=== PATIENT | male | born 1950 | race Caucasian/White ===

== ENCOUNTER 2016-11-06 10:10 | Emergency (ER) | payer MEDICARE, OTHER ==
[2016-11-06] MEDS ORDERED: Sodium Chloride 0.9% 10 ML Syringe FLUSH PRN (10:12)
--- NOTE | 2016-11-06 10:12 | EDM.PDOC ---
ED HISTORY OF PRESENT ILLNESS - General Chief Complaint: Respiratory Problem Stated Complaint: FROM CLINIC Time Seen by Provider: 11/06/16 10:11 Source of Information: Reports: Patient, Old records, Provider (Ethel LOPES), RN, RN notes reviewed History Limitations: Reports: No limitations - History of Present Illness INITIAL COMMENTS - FREE TEXT/NARRATIVE: Arrives from clinic by wheelchair, sent by Ethel LOPES with report of low oxygen saturation (83% on RA) with onset of cough yesterday. Pt denies fever , chills, chest pain, or edema. Pt reports cough x2 days and mild intermittent nausea. Ethel has consulted with pt's oncologist, and has Dr. Aldana accepted the pt but would like him evaluated and stabilized in the ER prior to transfer. Timing/Duration: Reports: Day(s): (2) Severity: severe Location, General: Reports: chest Quality: Reports: Other (denies pain) Improves with: Reports: None Worsens with: Reports: None Context, General: Reports: Sick contact (granddaughters have had colds). Denies : Activity, Exercise, Lifting, Trauma Associated Symptoms (General): Reports: no other symptoms - Related Data Allergies/ADRs: Allergies Allergy/AdvReac Type Severity Reaction Status Date / Time No Known Allergies Allergy Verified 06/23/15 16:10 Home Meds: Home Meds Glimepiride [Amaryl] 1 mg PO DAILY 07/15/14 [History] Aspirin 81 mg PO DAILY 11/06/16 [History] Escitalopram [Lexapro] 10 mg PO DAILY 11/06/16 [History] Itraconazole [Sporanox] 200 mg PO DAILY 11/06/16 [History] Penicillin V Potassium 500 mg PO DAILY 11/06/16 [History] predniSONE [predniSONE] 20 mg PO DAILY 11/06/16 [History] Past Medical History Other HEENT History: WEARS CORRECTIVE LENSES Cardiovascular History: Reports: High cholesterol Other Respiratory History: WEARS CPAP AT NIGHT Genitourinary History: Reports: Acute renal failure Musculoskeletal History: Reports: Other (see below) Other Musculoskeletal History: COMPRESSION FRACTURE T11-13 Other Neuro History: COMPRESSION FRACTURE T11-13 Endocrine/Metabolic History: Reports: Diabetes, type II Hematologic History: Reports: Other (see below) Other Hematologic History: PROTEINURIA; THROMBOCYTOPENIA Immunologic History: Reports: Other (see below) Other Immunologic History: Last Chemo 06-16-15 Oncologic (Cancer) History: Reports: Non-Hodgkin's Lymphoma - Past Surgical History GI Surgical History: Reports: Appendectomy Male Surgical History: Reports: None Endocrine Surgical History: Reports: None Neurological Surgical History: Reports: None Musculoskeletal Surgical History: Reports: None Oncologic Surgical History: Reports: None Social & Family History - Family History Family Medical History: Noncontributory - Tobacco Use Smoking Status *Q: Never Smoker Second Hand Smoke Exposure: No - Alcohol Use Days Per Week of Alcohol Use: 0 - Recreational Drug Use Recreational Drug Use: No Drug Use in Last 12 Months: Yes Recreational Drug Type: Reports: Marijuana/Hashish Recreational Drug Use Frequency: Monthly - Living Situation & Occupation Living situation: Reports: , with spouse ED ROS GENERAL - Review of Systems Review Of Systems: ROS reveals no pertinent complaints other than HPI. ED EXAM, GENERAL - Physical Exam Exam: See Below Exam Limited By: No limitations General Appearance: alert, WD/WN, no apparent distress Eye Exam: bilateral eye: normal inspection Ears: normal external exam, hearing grossly normal Nose: normal inspection Throat/Mouth: Normal inspection, Normal lips, Normal voice, No airway compromise Head: atraumatic, normocephalic Neck: normal inspection, supple, non-tender, full range of motion. No: lymphadenopathy (L), lymphadenopathy (R) Respiratory/Chest: no respiratory distress, no accessory muscle use, decreased breath sounds, crackles, rales, wheezing Cardiovascular: regular rate, rhythm, no edema GI/Abdominal: normal bowel sounds, soft, non tender, no distention (Male) Exam: Deferred Rectal (Males) Exam: Deferred Back Exam: normal inspection, full range of motion, NT Extremities: normal inspection, normal range of motion, non-tender, normal capillary refill, no pedal edema Neurological: alert, oriented, CN II-XII intact, normal cognition, no motor/ sensory deficits Psychiatric: normal affect, normal mood Skin Exam: Warm, Dry, Intact, Normal color, No rash EKG INTERPRETATION EKG Date: 11/06/16 Time: 11:12 Rhythm: other (SR) Rate (beats/min): 99 [place]: normal P-wave: present QRS: other (RSR' V1) ST-T: other (baseline wander) QT: normal Comparison: NA - no prior EKG Course - Vital Signs Last Recorded V/S: Last Vital Signs Temp 36.1 C 11/06/16 10:30 Pulse 100 11/06/16 10:30 Resp 22 H 11/06/16 10:30 BP 166/92 H 11/06/16 10:30 Pulse Ox 91 L 11/06/16 10:30 - Orders/Labs/Meds Orders: Active Orders 24 hr Category Date Time Status EKG 12 Lead [EKG Documentation Completion] [] STAT Care 11/06/16 10:59 Active Overnight Pulse Oximetry [] Click To Edit Care 11/06/16 10:14 Active Peripheral IV Care [] . DIRECTED Care 11/06/16 10:14 Active RT Aerosol Therapy [RC] ASDIRECTED Care 11/06/16 10:14 Active CULTURE BLOOD [BC] Stat Lab 11/06/16 10:33 Results CULTURE BLOOD [BC] Stat Lab 11/06/16 10:43 Received TROPONIN I [CHEM] Stat Lab 11/06/16 10:59 Ordered UA W/MICROSCOPIC [URIN] Stat Lab 11/06/16 10:12 Uncollected Sodium Chloride 0.9% [Saline Flush] Med 11/06/16 10:12 Active 10 ml FLUSH ASDIRECTED PRN Blood Culture x2 Reflex Set [OM.PC] Stat Oth 11/06/16 10:12 Ordered Peripheral IV Insertion Adult [OM.PC] Stat Oth 11/06/16 10:12 Ordered Pulse Oximetry Continuous Monitoring [OM.PC] Routine Oth 11/06/16 10:12 Ordered RT Supplemental Oxygen Titration [RESPCARE] Stat Ot 11/06/16 10:12 Active Medication Orders Sodium Chloride (Saline Flush) 10 ml FLUSH ASDIRECTED PRN PRN Reason: Keep Vein Open Last Admin: 11/06/16 11:01 Dose: 10 ml Labs: Laboratory Tests 11/06/16 11/06/16 11/06/16 Range/Units 10:43 10:43 10:43 WBC 4.6 L (5.0-10.0) 10^3/uL RBC 3.64 L (4.6-6.2) 10^6/uL Hgb 12.0 L (14.0-18.0) g/dL Hct 33.5 L (40.0-54.0) % MCV 92.0 (80-100) fL MCH 33.0 (27.0-34.0) pg MCHC 35.8 H (33.0-35.0) g/dL Plt Count 15 L* (150-450) 10^3/uL Neut % (Auto) 72.0 (42.2-75.2) % Lymph % (Auto) 18.7 L (20.5-50.1) % [place] % (Auto) 9.1 H (2-8) % Eos % (Auto) 0.2 L (1.0-3.0) % Baso % (Auto) 0.0 (0.0-1.0) % Add Manual Diff Yes Neutrophils % (Manual) 64 % Lymphocytes % (Manual) 23 % Monocytes % (Manual) 13 % PT 11.2 (9.0-12.0) SEC INR 1.1 (0.9-1.2) APTT 31.9 (22.0-34.0) SEC Sodium 134 L (135-145) mmol/L Potassium 4.2 (3.6-5.0) mmol/L Chloride 99 L (101-111) mmol/L Carbon Dioxide 22.0 (21.0-31.0) mmol/L Anion Gap 17.2 BUN 26 H (7-18) mg/dL Creatinine 1.3 (0.6-1.3) mg/dL Est Cr Clr Drug Dosing 56.65 mL/min Estimated GFR (MDRD) 55 BUN/Creatinine Ratio 20.00 Glucose 275 H (74-105) mg/dL Lactic Acid (0.5-2.2) mmol/L Calcium 8.7 (8.4-10.2) mg/dl Total Bilirubin 2.0 H (0.2-1.0) mg/dL AST 16 (10-42) IU/L ALT 34 (10-60) IU/L Alkaline Phosphatase 61 (42-121) IU/L B-Natriuretic Peptide 1060 H (0-100) pg/ml Total Protein 6.1 L (6.7-8.2) g/dl Albumin 3.4 (3.2-5.5) g/dl Globulin 2.7 Albumin/Globulin Ratio 1.26 05/02/17 Range/Units 10:43 WBC (5.0-10.0) 10^3/uL RBC (4.6-6.2) 10^6/uL Hgb (14.0-18.0) g/dL Hct (40.0-54.0) % MCV (80-100) fL MCH (27.0-34.0) pg MCHC (33.0-35.0) g/dL Plt Count (150-450) 10^3/uL Neut % (Auto) (42.2-75.2) % Lymph % (Auto) (20.5-50.1) % [place] % (Auto) (2-8) % Eos % (Auto) (1.0-3.0) % Baso % (Auto) (0.0-1.0) % Add Manual Diff Neutrophils % (Manual) % Lymphocytes % (Manual) % Monocytes % (Manual) % PT (9.0-12.0) SEC INR (0.9-1.2) APTT (22.0-34.0) SEC Sodium (135-145) mmol/L Potassium (3.6-5.0) mmol/L Chloride (101-111) mmol/L Carbon Dioxide (21.0-31.0) mmol/L Anion Gap BUN (7-18) mg/dL Creatinine (0.6-1.3) mg/dL Est Cr Clr Drug Dosing mL/min Estimated GFR (MDRD) BUN/Creatinine Ratio Glucose (74-105) mg/dL Lactic Acid 1.6 (0.5-2.2) mmol/L Calcium (8.4-10.2) mg/dl Total Bilirubin (0.2-1.0) mg/dL AST (10-42) IU/L ALT (10-60) IU/L Alkaline Phosphatase (42-121) IU/L B-Natriuretic Peptide (0-100) pg/ml Total Protein (6.7-8.2) g/dl Albumin (3.2-5.5) g/dl Globulin Albumin/Globulin Ratio Meds: Medications Generic Name Dose Route Start Last Admin Trade Name Freq PRN Reason Stop Dose Admin Sodium Chloride 10 ml 11/06/16 10:12 11/06/16 11:01 Saline Flush FLUSH 10 ml ASDIRECTED PRN Administration Keep Vein Open Discontinued Medications Generic Name Dose Route Start Last Admin Trade Name Freq PRN Reason Stop Dose Admin Albuterol/Ipratropium 3 ml 11/06/16 10:14 11/06/16 10:27 Duoneb 3.0-0.5 Mg/3 Ml NEB 11/06/16 10:15 3 ml ONETIME ONE Administration Furosemide 40 mg 11/06/16 10:24 11/06/16 10:52 Lasix IVPUSH 11/06/16 10:25 40 mg NOW ONE Administration Methylprednisolone Sodium Succinate 125 mg 11/06/16 10:24 11/06/16 10:59 Solu-Medrol IVPUSH 11/06/16 10:25 125 mg ONETIME ONE Administration - Radiology Interpretation Free Text/Narrative:: CXR taken at clinic, not available to view by me: pulm. up. congestion, CHF per verbal report from Ethel LOPES. Departure - Departure Time of Disposition: 11:28 Disposition: DC/Tfer to [facility] 02 Condition: critical Clinical Impression: Acute pulmonary edema, Thrombocytopenia, Non-Hodgkin's lymphoma Acute CHF Qualifiers: Congestive heart failure type: unspecified congestive heart failure type Qualified Code(s): I50.9 - Heart failure, unspecified Forms: ED Department Discharge, Interfacility Transfer EMTALA - My Orders Last 24 Hours: My Active Orders 11/06/16 10:12 UA W/MICROSCOPIC [URIN] Stat Sodium Chloride 0.9% [Saline Flush] 10 ml FLUSH ASDIRECTED PRN Blood Culture x2 Reflex Set [OM.PC] Stat Peripheral IV Insertion Adult [OM.PC] Stat Pulse Oximetry Continuous Monitoring [OM.PC] Routine RT Supplemental Oxygen Titration [RESPCARE] Stat 11/06/16 10:14 Overnight Pulse Oximetry [RC] Click To Edit Peripheral IV Care [RC] . DIRECTED RT Aerosol Therapy [RC] ASDIRECTED 11/06/16 10:33 CULTURE BLOOD [BC] Stat 11/06/16 10:43 CULTURE BLOOD [BC] Stat 11/06/16 10:59 EKG 12 Lead [EKG Documentation Completion] [RC] STAT TROPONIN I [CHEM] Stat - Assessment/Plan Last 24 Hours: My Active Orders 11/06/16 10:12 UA W/MICROSCOPIC [URIN] Stat Sodium Chloride 0.9% [Saline Flush] 10 ml FLUSH ASDIRECTED PRN Blood Culture x2 Reflex Set [OM.PC] Stat Peripheral IV Insertion Adult [OM.PC] Stat Pulse Oximetry Continuous Monitoring [OM.PC] Routine RT Supplemental Oxygen Titration [RESPCARE] Stat 11/06/16 10:14 Overnight Pulse Oximetry [RC] Click To Edit Peripheral IV Care [RC] . DIRECTED RT Aerosol Therapy [RC] ASDIRECTED 11/06/16 10:33 CULTURE BLOOD [BC] Stat 11/06/16 10:43 CULTURE BLOOD [BC] Stat 11/06/16 10:59 EKG 12 Lead [EKG Documentation Completion] [RC] STAT TROPONIN I [CHEM] Stat
[2016-11-06] MEDS ORDERED: Albuterol/Ipratropium 3.0-0.5 MG/3 ML Neb Soln NEB ONE (10:14)
[2016-11-06] MEDS ORDERED: Furosemide 40 MG/4 ML VIAL IVPUSH ONE (10:24)
[2016-11-06] MEDS ORDERED: methylPREDNISolone Sodium Succinate 125 MG/2 ML SDV IVPUSH ONE (10:24)
[2016-11-06 10:32] VITALS: BP 166/92
--- NOTE | 2016-11-07 07:20 | EKG ---
11/06/2016- AMELIA LOPEZ - EKG done on a 66-year-old male, showing sinus rhythm with normal axis, with heart rate of 99 beats per minute. No acute ST wave changes. RSR noted on V1. [facility] /[id number] MTDD
== END 2016-11-06 12:23 ==
LOC: DL.ED 10:10
DX: I21.4 Non-ST elevation (NSTEMI) myocardial infarction (principal); I50.9 Heart failure, unspecified; J81.0 Acute pulmonary edema; D69.6 Thrombocytopenia, unspecified; C85.90 Non-Hodgkin lymphoma, unspecified, unspecified site; E78.00 Pure hypercholesterolemia, unspecified; E11.9 Type 2 diabetes mellitus without complications; Z90.49 Acquired absence of other specified parts of digestive tract; Z79.82 Long term (current) use of aspirin; Z79.899 Other long term (current) drug therapy
CPT/HCPCS: 36415; 80053; 81001; 83605; 83880; 84484; 85025; 85610; 85730; 87040; 93005; 93010; 94640; 96374; 96375; 99284; 99285; J1940; J2930; J7050

== ENCOUNTER 2017-01-07 15:10 | Emergency (ER) | payer MEDICARE, OTHER ==
[2017-01-07 15:19] VITALS: BP 108/62
[2017-01-07] MEDS ORDERED: Sodium Chloride 0.9% 10 ML Syringe FLUSH PRN (15:20)
--- NOTE | 2017-01-07 16:04 | CR ---
Clinical history: 66-year-old male left chest pain, cough and fever who is known to have "non-Hodgki n's lymphoma". PA, lateral chest films again demonstrate benign-appearing large granuloma, axillary segment right u pper lobe, unchanged since CT exam 14 March 2016. Chronic pleural-parenchymal scarring left chest . No pneumothorax. 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 Old healed fracture rig ht clavicle. Normal cardiac silhouette without cephalization of vascular flow, new signs of alveolar edema or dep endent pleural effusion. No new lung mass, hilar lymphadenopathy or focal lobar pneumonia. CONCLUSION: No acute new cardiopulmonary abnormality since March 2016 exam.
--- NOTE | 2017-01-09 13:20 | EKG ---
01/07/2017- AMELIA LOPEZ - EKG per my reading shows sinus rhythm at a rate of 88 with inferior Q-waves. [facility] /[id number]
--- NOTE | 2017-01-09 15:38 | EDM.PDOC ---
Scribed by Shannan Hill 01/09/17 1537 for Rony Burrell MD ED HPI GENERAL MEDICAL PROBLEM - General Chief Complaint: Chest Pain Stated Complaint: CHEST PAINS, [id number] Time Seen by Provider: 01/07/17 15:15 Source of Information: Reports: Patient, RN, RN Notes Reviewed History Limitations: Reports: No Limitations - History of Present Illness INITIAL COMMENTS - FREE TEXT/NARRATIVE: Complaining of onset of left lateral chest wall pain yesterday. Denies injury, radiating pain, cough or SOB. Describes the pain as sharp and worse with palpation. Quality: Reports: Ache Severity: Moderate Improves with: Reports: None Worsens with: Reports: None Associated Symptoms: Reports: No Other Symptoms Left Chest Pain Score (Numeric/FACES): 6 - Related Data Allergies Allergy/AdvReac Type Severity Reaction Status Date / Time simvastatin Allergy Hives Verified 01/07/17 15:15 Home Meds: Home Meds Glimepiride [Amaryl] 1 mg PO DAILY 07/15/14 [History] Aspirin 81 mg PO DAILY 11/06/16 [History] Escitalopram [Lexapro] 10 mg PO DAILY 11/06/16 [History] Penicillin V Potassium 500 mg PO BID 11/06/16 [History] Cholecalciferol (Vitamin D3) [Vitamin D] 5,000 unit PO DAILY 01/07/17 [History] Past Medical History HEENT History: Reports: Impaired Vision Other HEENT History: WEARS CORRECTIVE LENSES Cardiovascular History: Reports: High Cholesterol Other Respiratory History: WEARS CPAP AT NIGHT Genitourinary History: Reports: Acute Renal Failure Musculoskeletal History: Reports: Other (See Below) Other Musculoskeletal History: COMPRESSION FRACTURE T11-13 Other Neuro History: COMPRESSION FRACTURE T11-13 Endocrine/Metabolic History: Reports: Diabetes, Type II Hematologic History: Reports: Other (See Below) Other Hematologic History: PROTEINURIA; THROMBOCYTOPENIA Immunologic History: Reports: Other (See Below) Other Immunologic History: Last Chemo 06-16-15 Oncologic (Cancer) History: Reports: Non-Hodgkin's Lymphoma - Past Surgical History GI Surgical History: Reports: Appendectomy Male Surgical History: Reports: None Endocrine Surgical History: Reports: None Neurological Surgical History: Reports: None Musculoskeletal Surgical History: Reports: None Oncologic Surgical History: Reports: None Social & Family History - Family History Family Medical History: Noncontributory - Tobacco Use Smoking Status *Q: Never Smoker Used Tobacco, but Quit: Yes Month Tobacco Last Used: 2009 Second Hand Smoke Exposure: No - Caffeine Use Caffeine Use: Reports: Coffee - Alcohol Use Days Per Week of Alcohol Use: 0 - Recreational Drug Use Recreational Drug Use: No Drug Use in Last 12 Months: Yes Recreational Drug Type: Reports: Marijuana/Hashish Recreational Drug Use Frequency: Monthly - Living Situation & Occupation Living situation: Reports: , with Spouse ED ROS GENERAL - Review of Systems Review Of Systems: ROS reveals no pertinent complaints other than HPI. ED EXAM, GENERAL - Physical Exam Exam: See Below Exam Limited By: No Limitations General Appearance: Obese Eye Exam: Bilateral Eye: Normal Inspection Ears: Normal External Exam, Normal Canal, Hearing Grossly Normal, Normal TMs Nose: Normal Inspection, Normal Mucosa, No Blood Throat/Mouth: Normal Inspection, Normal Lips, Normal Teeth, Normal Gums, Normal Oropharynx, Normal Voice, No Airway Compromise Head: Atraumatic, Normocephalic Neck: Normal Inspection, Supple, Non-Tender, Full Range of Motion Respiratory/Chest: Other (normal except left lateral chest wall tenderness without mass, swelling, erythema, bruising, or richard crepitus. ) Cardiovascular: Normal Peripheral Pulses, Regular Rate, Rhythm, No Edema, No Gallop, No JVD, No Murmur, No Rub GI/Abdominal: Other (obese, otherwise normal. ) Back Exam: Normal Inspection, Full Range of Motion, NT Extremities: Normal Inspection, Normal Range of Motion, Non-Tender, Normal Capillary Refill, No Pedal Edema Neurological: Alert, Oriented, CN II-XII Intact, Normal Cognition, Normal Gait, Normal Reflexes, No Motor/Sensory Deficits Psychiatric: Normal Affect, Normal Mood Skin Exam: Warm, Dry, Intact, Normal Color, No Rash Lymphatic: No Adenopathy EKG INTERPRETATION EKG Date: 01/07/17 Time: 15:28 Rhythm: Other (sinus rhythm) Rate (Beats/Min): 88 [place]: Normal P-Wave: Present QRS: Other (Old inferior Q waves. Abnormal R wave progression easly transition.) ST-T: Normal QT: Normal Comparison: NA - No Prior EKG Course - Vital Signs Last Recorded V/S: Last Vital Signs Temp 37.7 C 01/07/17 15:18 Pulse 99 01/07/17 15:18 Resp 16 01/07/17 15:18 BP 108/62 01/07/17 15:18 Pulse Ox 100 01/07/17 15:18 - Orders/Labs/Meds Labs: Laboratory Tests 01/07/17 01/07/17 01/07/17 Range/Units 15:40 15:40 15:40 WBC 9.1 (5.0-10.0) 10^3/uL RBC 3.04 L (4.6-6.2) 10^6/uL Hgb 10.5 L (14.0-18.0) g/dL Hct 31.5 L (40.0-54.0) % MCV 103.6 H (80-100) fL MCH 34.5 H (27.0-34.0) pg MCHC 33.3 (33.0-35.0) g/dL Plt Count 83 L (150-450) 10^3/uL Neut % (Auto) 57.2 (42.2-75.2) % Lymph % (Auto) 25.7 (20.5-50.1) % [place] % (Auto) 16.4 H (2-8) % Eos % (Auto) 0.3 L (1.0-3.0) % Baso % (Auto) 0.4 (0.0-1.0) % Sodium 137 (135-145) mmol/L Potassium 4.4 (3.6-5.0) mmol/L Chloride 102 (101-111) mmol/L Carbon Dioxide 26.0 (21.0-31.0) mmol/L Anion Gap 13.4 BUN 19 H (7-18) mg/dL Creatinine 1.3 (0.6-1.3) mg/dL Est Cr Clr Drug Dosing 57.57 mL/min Estimated GFR (MDRD) 55 BUN/Creatinine Ratio 14.61 Glucose 155 H (74-105) mg/dL Lactic Acid 2.0 (0.5-2.2) mmol/L Calcium 9.1 (8.4-10.2) mg/dl Total Bilirubin 0.3 (0.2-1.0) mg/dL AST 17 (10-42) IU/L ALT 16 (10-60) IU/L Alkaline Phosphatase 59 (42-121) IU/L Troponin I 0.02 (0.00-0.02) ng/ml B-Natriuretic Peptide 128 H (0-100) pg/ml Total Protein 6.4 L (6.7-8.2) g/dl Albumin 3.6 (3.2-5.5) g/dl Globulin 2.8 Albumin/Globulin Ratio 1.29 Amylase 70 (28-100) U/L Lipase 33 (22-51) U/L Urine Color (YELLOW) Urine Appearance (CLEAR) Urine pH (5.0-9.0) Ur Specific [place] (1.005-1.030) Urine Protein (NEGATIVE) Urine Glucose (UA) (NEGATIVE) Urine Ketones (NEGATIVE) Urine Occult Blood (NEGATIVE) Urine Nitrite (NEGATIVE) Urine Bilirubin (NEGATIVE) Urine Urobilinogen (0.2-1.0) mg/dL Ur Leukocyte Esterase (NEGATIVE) Urine RBC /HPF Urine WBC (0-5/HPF) /HPF Ur Epithelial Cells /HPF Urine Bacteria (0-FEW/HPF) /HPF Urine Mucus /LPF 01/07/17 Range/Units 16:43 WBC (5.0-10.0) 10^3/uL RBC (4.6-6.2) 10^6/uL Hgb (14.0-18.0) g/dL Hct (40.0-54.0) % MCV (80-100) fL MCH (27.0-34.0) pg MCHC (33.0-35.0) g/dL Plt Count (150-450) 10^3/uL Neut % (Auto) (42.2-75.2) % Lymph % (Auto) (20.5-50.1) % [place] % (Auto) (2-8) % Eos % (Auto) (1.0-3.0) % Baso % (Auto) (0.0-1.0) % Sodium (135-145) mmol/L Potassium (3.6-5.0) mmol/L Chloride (101-111) mmol/L Carbon Dioxide (21.0-31.0) mmol/L Anion Gap BUN (7-18) mg/dL Creatinine (0.6-1.3) mg/dL Est Cr Clr Drug Dosing mL/min Estimated GFR (MDRD) BUN/Creatinine Ratio Glucose (74-105) mg/dL Lactic Acid (0.5-2.2) mmol/L Calcium (8.4-10.2) mg/dl Total Bilirubin (0.2-1.0) mg/dL AST (10-42) IU/L ALT (10-60) IU/L Alkaline Phosphatase (42-121) IU/L Troponin I (0.00-0.02) ng/ml B-Natriuretic Peptide (0-100) pg/ml Total Protein (6.7-8.2) g/dl Albumin (3.2-5.5) g/dl Globulin Albumin/Globulin Ratio Amylase (28-100) U/L Lipase (22-51) U/L Urine Color Yellow (YELLOW) Urine Appearance Clear (CLEAR) Urine pH 5.5 (5.0-9.0) Ur Specific [place] 1.020 (1.005-1.030) Urine Protein Negative (NEGATIVE) Urine Glucose (UA) 100 H (NEGATIVE) Urine Ketones Negative (NEGATIVE) Urine Occult Blood Negative (NEGATIVE) Urine Nitrite Negative (NEGATIVE) Urine Bilirubin Negative (NEGATIVE) Urine Urobilinogen 0.2 (0.2-1.0) mg/dL Ur Leukocyte Esterase Negative (NEGATIVE) Urine RBC 0-5 /HPF Urine WBC 0-5 (0-5/HPF) /HPF Ur Epithelial Cells Rare /HPF Urine Bacteria Rare (0-FEW/HPF) /HPF Urine Mucus Few H /LPF Meds: Medications Discontinued Medications Generic Name Dose Route Start Last Admin Trade Name Freq PRN Reason Stop Dose Admin Sodium Chloride 10 ml 01/07/17 15:20 01/07/17 16:14 Saline Flush FLUSH 10 ml ASDIRECTED PRN Administration Keep Vein Open - Radiology Interpretation Free Text/Narrative:: Chest x-ray: Per rad report No acute new cardiopulmonary abnormality since March 2016 exam. Departure - Departure Time of Disposition: 16:47 Disposition: Home, Self-Care 01 Condition: Good Clinical Impression: Pleurisy without effusion, Pleurodynia Instructions: Pleurisy, [id number], Nonspecific Chest Pain Referrals: Ethel Ojeda [Primary Care Provider] - Forms: ED Department Discharge Additional Instructions: Take your home pain medication as prescribed. Take several deep breaths at least once an hour while awake to prevent development of pneumonia. Follow up in clinic in 3 days if not improved.Return to ER at any time. I have read and agree with the documentation that has been completed regarding this visit. By signing this record, I attest that the documentation was completed in my physical presence and is an accurate record of the encounter.
== END 2017-01-07 16:58 | disposition home or self-care (01) ==
LOC: DL.ED 15:10
DX: R09.1 Pleurisy (principal); R07.81 Pleurodynia; H54.7 Unspecified visual loss; E78.00 Pure hypercholesterolemia, unspecified; E11.9 Type 2 diabetes mellitus without complications; Z90.49 Acquired absence of other specified parts of digestive tract; Z79.899 Other long term (current) drug therapy; Z79.82 Long term (current) use of aspirin
CPT/HCPCS: 36415; 71020; 80053; 81001; 82150; 83605; 83690; 83880; 84484; 85025; 87040; 93005; 99285; J7050; 93010

== ENCOUNTER 2017-10-23 07:05 | Day surgery (SDC) | payer MEDICARE, OTHER ==
[2017-10-23] MEDS ORDERED: Dexamethasone 4 MG/ML SDV IV ONE (07:06)
[2017-10-23] MEDS ORDERED: Sodium Chloride 0.9% 10 ML Syringe IV ONE (07:06)
[2017-10-23] MEDS ORDERED: Midazolam 1 MG/ML 2 ML SDV IV ONE (07:06)
[2017-10-23] MEDS ORDERED: Timolol Maleate 0.5% Ophth Soln 5 ML Bottle EYERT ONE (07:30)
[2017-10-23] MEDS ORDERED: Sodium Chloride 0.9% 10 ML Syringe FLUSH PRN (07:30)
[2017-10-23] MEDS ORDERED: Ondansetron 4 MG/2 ML SDV IVPUSH PRN (07:30)
[2017-10-23] MEDS ORDERED: Phenylephrine 10% Ophth Soln 5 ML Bot EYERT PRN (07:30)
[2017-10-23] MEDS ORDERED: Cataract Ophth Solution EYERT ONE (07:30)
[2017-10-23] MEDS ORDERED: Povidone-Iodine 5% Sterile Ophth Soln 30 ML Bottle EYERT ONE ×2 (07:30→08:49)
[2017-10-23] MEDS ORDERED: Moxifloxacin 0.5% Ophth Soln 3 ML Bottle EYERT ONE (07:30)
[2017-10-23] MEDS ORDERED: Phenylephrine 10% Ophth Soln 5 ML Bot EYERT ONE (07:30)
[2017-10-23] MEDS ORDERED: Proparacaine 0.5% Ophth Soln 15 ML Bottle EYERT ONE (07:30)
[2017-10-23] MEDS ORDERED: Acetaminophen 325 MG Tab PO PRN (07:30)
[2017-10-23] MEDS ORDERED: Tetracaine HCl/PF 0.5% 4 ML Bottle EYERT ONE (08:48)
[2017-10-23] MEDS ORDERED: Vancomycin 500 MG SDV EYERT ONE (08:59)
[2017-10-23] MEDS ORDERED: Lidocaine 1% 30 ML SDV INJECT ONE (08:59)
[2017-10-23] MEDS ORDERED: Chondroitin Sulfate/Hyaluronate Sodium Ophth Inj 0.5 ML Syringe IOCULAR ONE (09:00)
[2017-10-23] MEDS ORDERED: Balanced Salt Solution Ophth Irrig 500 ML Bottle IOCULAR ONE (09:00)
[2017-10-23] MEDS ORDERED: Dexamethasone/Neomycin/Polymyxin B Ophth Oint 3.5 GM Tube EYERT ONE (09:10)
[2017-10-23] MEDS ORDERED: Apraclonidine 0.5% Ophth Soln 5 ML Bot EYERT ONE (09:10)
--- NOTE | 2017-10-23 10:02 | OR ---
DATE: PREOPERATIVE DIAGNOSIS: Visually significant mixed cataract, right eye. POSTOPERATIVE DIAGNOSIS: Visually significant mixed cataract, right eye. PROCEDURE: Extracapsular cataract extraction with intraocular lens implant, right eye. ANESTHESIA: Topical/local MAC. COMPLICATIONS: None. INDICATION: Mr. Galeana was seen in the clinic with complaints of blurred vision. Feels like he is looking through dirty glasses. His clinical examination reveals mixed nuclear and cortical cataract. Visual acuity with oncoming light is at the level of 20 unable. I offered Mr. Galaena cataract surgery. I explained the risks including but not limited to infection, retinal detachment, loss of vision, and need for additional surgery amongst others. We discussed implant options. He has requested surgery with a monofocal implant. He voiced an understanding with respect to risks and wished to proceed. OPERATIVE DESCRIPTION: After informed consent was obtained and the risks, benefits, and alternatives were explained, the patient was brought to the operative suite and topical anesthesia was administered. The patient was then prepped and draped in the sterile fashion and attention was placed on the right eye. A sterile lid speculum was placed into the right eye to allow operative exposure. A full-thickness paracentesis was made in the temporal portion of the operative eye. Preservative-free lidocaine 0.1 mL was injected into the anterior chamber followed by viscoelastic. A full-thickness corneal incision was then made into the anterior chamber. A bent needle cystotome was used to create a small amy in the anterior capsule. The capsulorrhexis forceps was then used to create a 360-degree curvilinear capsulorrhexis. The nucleus was then removed using a phacoemulsification handpiece, and the remaining cortical material was then removed with irrigation and aspiration handpiece. Following removal of the cortical material, the capsular bag was then inspected and noted to be free of any holes or tears. Viscoelastic was then injected into the capsular bag, and the intraocular lens was inserted into the capsular bag. The viscoelastic material was then removed from both the anterior and posterior chambers and from behind the IOL. The lens and capsular bag were then reinspected. The IOL was well centered and the capsular bag intact. The wound and paracentesis sites were inspected and hydrated with balanced saline solution. Both were found to be self-sealing. The intraocular pressure was assessed digitally and found to be within normal range. A good red reflex was noted at the completion of the procedure. No complications occurred during the operation. At the completion of the procedure, Maxitrol, Voltaren, and Iopidine drops were placed into the operative eye. A sterile eye shield was placed over the operative eye, and the patient was transported to the postoperative recovery area having tolerated the procedure well. Postoperative instructions were given along with a postoperative appointment. The patient was advised to call with any questions or concerns. [facility] /[id number]
[2017-10-23 10:08] VITALS: BP 143/68
== END 2017-10-23 10:00 | disposition home or self-care (01) ==
LOC: DL.SDS 07:05
PROVIDERS: ATTEND Ophthalmology
DX: H25.811 Combined forms of age-related cataract, right eye (principal); E11.36 Type 2 diabetes mellitus with diabetic cataract; I10 Essential (primary) hypertension; E78.5 Hyperlipidemia, unspecified; G47.33 Obstructive sleep apnea (adult) (pediatric); Z79.52 Long term (current) use of systemic steroids; Z99.89 Dependence on other enabling machines and devices; Z79.899 Other long term (current) drug therapy; Z88.8 Allergy status to other drugs, medicaments and biological substances
CPT/HCPCS: 00142; A9270-GY; C1780; J1100; J2250; J3370; J7050

== ENCOUNTER 2017-10-30 09:49 | Day surgery (SDC) | payer MEDICARE, OTHER ==
[2017-10-30] MEDS ORDERED: Sodium Chloride 0.9% 10 ML Syringe IV ONE (09:50)
[2017-10-30] MEDS ORDERED: Midazolam 1 MG/ML 2 ML SDV IV ONE (09:50)
[2017-10-30] MEDS ORDERED: Dexamethasone 4 MG/ML SDV IV ONE (09:50)
[2017-10-30] MEDS ORDERED: Proparacaine 0.5% Ophth Soln 15 ML Bottle EYELF ONE (10:00)
[2017-10-30] MEDS ORDERED: Sodium Chloride 0.9% 10 ML Syringe FLUSH PRN (10:00)
[2017-10-30] MEDS ORDERED: Povidone-Iodine 5% Sterile Ophth Soln 30 ML Bottle EYELF ONE ×2 (10:00→10:47)
[2017-10-30] MEDS ORDERED: Moxifloxacin 0.5% Ophth Soln 3 ML Bottle EYELF ONE (10:00)
[2017-10-30] MEDS ORDERED: Phenylephrine 10% Ophth Soln 5 ML Bot EYELF PRN (10:00)
[2017-10-30] MEDS ORDERED: Acetaminophen 325 MG Tab PO PRN (10:00)
[2017-10-30] MEDS ORDERED: Phenylephrine 10% Ophth Soln 5 ML Bot EYELF ONE (10:00)
[2017-10-30] MEDS ORDERED: Ondansetron 4 MG/2 ML SDV IVPUSH PRN (10:00)
[2017-10-30] MEDS ORDERED: Timolol Maleate 0.5% Ophth Soln 5 ML Bottle EYELF ONE (10:00)
[2017-10-30] MEDS ORDERED: Cataract Ophth Solution EYELF ONE (10:00)
[2017-10-30] MEDS ORDERED: Tetracaine HCl/PF 0.5% 4 ML Bottle EYELF ONE (10:46)
[2017-10-30] MEDS ORDERED: Lidocaine 1% 30 ML SDV ONE (10:48)
[2017-10-30] MEDS ORDERED: Vancomycin 500 MG SDV EYELF ONE (10:48)
[2017-10-30] MEDS ORDERED: Balanced Salt Solution Ophth Irrig 500 ML Bottle IOCULAR ONE (10:48)
[2017-10-30] MEDS ORDERED: Chondroitin Sulfate/Hyaluronate Sodium Ophth Inj 0.75 ML Syringe EYELF ONE (10:49)
[2017-10-30] MEDS ORDERED: Dexamethasone/Neomycin/Polymyxin B Ophth Oint 3.5 GM Tube EYELF ONE (10:50)
[2017-10-30] MEDS ORDERED: Apraclonidine 0.5% Ophth Soln 5 ML Bot EYELF ONE (10:50)
[2017-10-30 13:40] VITALS: BP 123/62
--- NOTE | 2017-10-30 17:37 | OR ---
DATE: 10/30/2017 PREOPERATIVE DIAGNOSIS: Visually significant mixed cataract, left eye. POSTOPERATIVE DIAGNOSIS: Visually significant mixed cataract, left eye. PROCEDURE: Extracapsular cataract extraction with intraocular lens implant, left eye. ANESTHESIA: Topical/local MAC. COMPLICATIONS: None. INDICATION: Mr. Galeana was seen in the clinic. He is unhappy with his vision. He has difficulty with blurred vision and has difficulty with glare. Clinical examination reveals mixed cataract. I explained options; I offered cataract surgery; and I explained risks including, but not limited to infection, retinal detachment, loss of vision, and need for additional surgery amongst others. We discussed implant options. He has requested a monofocal implant. He understands that he may require glasses for some activities following surgery. He voiced an understanding with respect to risks and wished to proceed. OPERATIVE DESCRIPTION: After informed consent was obtained and the risks, benefits, and alternatives were explained, the patient was brought to the operative suite and topical anesthesia was administered. The patient was then prepped and draped in the sterile fashion, and attention was placed on the left eye. A sterile lid speculum was placed into the left eye to allow operative exposure. A full-thickness paracentesis was made in the temporal portion of the operative eye. Preservative-free lidocaine 0.1 mL was injected into the anterior chamber followed by viscoelastic. A full-thickness corneal incision was then made into the anterior chamber. A bent needle cystotome was used to create a small amy in the anterior capsule. The capsulorrhexis forceps was then used to create a 360-degree curvilinear capsulorrhexis. The nucleus was then removed using a phacoemulsification handpiece, and the remaining cortical material was then removed with irrigation and aspiration handpiece. Following removal of the cortical material, the capsular bag was then inspected and noted to be free of any holes or tears. Viscoelastic was then injected into the capsular bag, and the intraocular lens was inserted into the capsular bag. The viscoelastic material was then removed from both the anterior and posterior chambers and from behind the IOL. The lens and capsular bag were then reinspected. The IOL was well centered and the capsular bag intact. The wound and paracentesis sites were inspected and hydrated with balanced saline solution. Both were found to be self-sealing. The intraocular pressure was assessed digitally and found to be within normal range. A good red reflex was noted at the completion of the procedure. No complications occurred during the operation. At the completion of the procedure, Maxitrol, Voltaren, and Iopidine drops were placed into the operative eye. A sterile eye shield was placed over the operative eye, and the patient was transported to the postoperative recovery area having tolerated the procedure well. Postoperative instructions were given along with a postoperative appointment. The patient was advised to call with any questions or concerns. [facility] /[id number]
== END 2017-10-30 11:50 | disposition home or self-care (01) ==
LOC: DL.SDS 09:49
PROVIDERS: ATTEND Ophthalmology
DX: H25.812 Combined forms of age-related cataract, left eye (principal); E78.5 Hyperlipidemia, unspecified; I10 Essential (primary) hypertension; G47.33 Obstructive sleep apnea (adult) (pediatric); Z99.89 Dependence on other enabling machines and devices; Z79.52 Long term (current) use of systemic steroids; Z79.899 Other long term (current) drug therapy; Z88.8 Allergy status to other drugs, medicaments and biological substances
CPT/HCPCS: 66984; A9270; J3370; J7050; 00142; C1780; J1100; J2250

== ENCOUNTER 2018-11-01 17:51 | Emergency (ER) | payer MEDICARE, OTHER ==
[2018-11-01 18:08] VITALS: BP 98/27
--- NOTE | 2018-11-02 08:31 | EDM.PDOC ---
Scribed by Shannan Hill 11/01/18 [id number] for Gracie Breen NP ED HPI GENERAL MEDICAL PROBLEM - General Chief Complaint: ENT Problem Stated Complaint: HEAR AID TIP STUCK IN EAR Time Seen by Provider: 11/01/18 18:35 Source of Information: Reports: Patient, RN, RN Notes Reviewed History Limitations: Reports: No Limitations - History of Present Illness INITIAL COMMENTS - FREE TEXT/NARRATIVE: Patient presents to ER with complaint of tip of hearing aid in left ear. No other complaints. Onset: Today Duration: Constant Location: Reports: Other (left ear) Quality: Reports: Ache Severity: Mild Improves with: Reports: None Worsens with: Reports: None Associated Symptoms: Reports: No Other Symptoms - Related Data Allergies Allergy/AdvReac Type Severity Reaction Status Date / Time simvastatin Allergy Hives Verified 11/01/18 18:02 Home Meds: Home Meds Glimepiride [Amaryl] 4 mg PO DAILY 07/15/14 [History] Aspirin 81 mg PO BEDTIME 11/06/16 [History] Escitalopram [Lexapro] 10 mg PO DAILY 11/06/16 [History] Penicillin V Potassium 500 mg PO BID 11/06/16 [History] Cholecalciferol (Vitamin D3) [Vitamin D] 5,000 unit PO DAILY 01/07/17 [History] Calc/D3/Mag/Zn/[place]mas/[place] [Calcium 600 MG Plus Vit D] 1 tab PO DAILY [History] Leuprolide Acetate [Lupron Depot] 45 mg SQ [id number] 10/22/17 [History] Vit A/C/E AC/Znox/Cupric Oxide [Eye Vitamin-Minerals Tablet] 1 tab PO DAILY [History] valACYclovir HCl [Valtrex] 500 mg PO DAILY 10/22/17 [History] Past Medical History HEENT History: Reports: Cataract, Impaired Vision, Other (See Below) Other HEENT History: WEARS CORRECTIVE LENSES. HX OF HERPES SIMPLEX CONJUNCTIVITIS. Hx OF CATARACT SURGERY TO THE LEFT EYE Cardiovascular History: Reports: High Cholesterol Respiratory History: Reports: None, Other (See Below) Other Respiratory History: WEARS CPAP AT NIGHT. CALCIFIED GRANULOMA OF LUNG. HX OF HISTOPLASMOSIS Gastrointestinal History: Reports: None Genitourinary History: Reports: Acute Renal Failure, Prostate Disorder Musculoskeletal History: Reports: Fracture, Other (See Below) Other Musculoskeletal History: COMPRESSION FRACTURE T11-13. RIGHT CLAVICLE FRACTURE Other Neuro History: COMPRESSION FRACTURE T11-13 Psychiatric History: Reports: Depression Endocrine/Metabolic History: Reports: Diabetes, Type II Hematologic History: Reports: Other (See Below) Other Hematologic History: PROTEINURIA; THROMBOCYTOPENIA Immunologic History: Reports: Other (See Below) Other Immunologic History: Last Chemo 06-16-15 Oncologic (Cancer) History: Reports: Non-Hodgkin's Lymphoma, Prostate Dermatologic History: Reports: None - Infectious Disease History Infectious Disease History: Reports: Chicken Pox, Measles, Mumps - Past Surgical History Head Surgeries/Procedures: Reports: None HEENT Surgical History: Reports: None, Cataract Surgery Cardiovascular Surgical History: Reports: None GI Surgical History: Reports: Appendectomy, Colonoscopy, EGD Male Surgical History: Reports: None, Other (See Below) Endocrine Surgical History: Reports: None Neurological Surgical History: Reports: None Musculoskeletal Surgical History: Reports: None Oncologic Surgical History: Reports: Bone Marrow Transplant Other Oncologic Surgeries/Procedures: [facility] Social & Family History - Family History Family Medical History: Noncontributory - Tobacco Use Smoking Status *Q: Never Smoker Second Hand Smoke Exposure: No - Caffeine Use Caffeine Use: Reports: Coffee Caffeine Use Comment: 3 cups - Living Situation & Occupation Living situation: Reports: , with Spouse ED ROS ENT - Review of Systems Review Of Systems: ROS reveals no pertinent complaints other than HPI. ED EXAM, ENT - Physical Exam Exam: See Below Exam Limited By: No Limitations General Appearance: Alert, WD/WN, No Apparent Distress Eye Exam: Bilateral Eye: Normal Inspection Ears: Other (rubber tip of hearing aid visualized) Nose: Normal Inspection, Normal Mucousa, No Blood Mouth/Throat: Normal Inspection, Normal Gums, Normal Lips, Normal Oropharynx, Normal Teeth Head: Atraumatic, Normocephalic Neck: Normal Inspection, Supple, Non-Tender, Full Range of Motion Respiratory/Chest: Other (diminished lung sounds) Cardiovascular: Normal Peripheral Pulses, Regular Rate, Rhythm, No Edema, No Gallop, No JVD, No Murmur, No Rub GI/Abdominal: Normal Bowel Sounds, Soft, Non-Tender, No Organomegaly, No Distention, No Abnormal Bruit, No Mass (Male) Exam: Deferred Rectal (Males) Exam: Deferred Back: Normal Inspection, Full Range of Motion Extremities: Normal Inspection, Normal Range of Motion, Non-Tender, No Pedal Edema, Normal Capillary Refill Neurological: Alert, Oriented, CN II-XII Intact, Normal Cognition, Normal Gait, Normal Reflexes, No Motor/Sensory Deficits Psychiatric: Normal Affect, Normal Mood Skin: Warm, Dry, Intact, Normal Color, No Rash Lymphatic: No Adenopathy ED ENT PROCEDURES - Foreign Body Removal Indication:: Rubber tip of hearing aid lodged in left ear canal. Consent Obtained: Patient Performing Doctor:: Gracie Breen Anesthesia Type: None Complications: No Comments: Ear currette used to grasp the piece of rubber tip. Removed with ease. No complications. Course - Vital Signs Last Recorded V/S: Last Vital Signs Temp 98.8 F 11/01/18 17:55 Pulse 64 11/01/18 17:55 Resp 18 11/01/18 17:55 BP 98/27 L 11/01/18 17:55 Pulse Ox 97 11/01/18 17:55 Departure - Departure Time of Disposition: 18:43 Disposition: Home, Self-Care 01 Condition: Good Clinical Impression: Foreign body in ear Qualifiers: Encounter type: initial encounter Laterality: left Qualified Code(s): T16.2XXA - Foreign body in left ear, initial encounter - Discharge Information *PRESCRIPTION DRUG MONITORING PROGRAM REVIEWED*: No *COPY OF PRESCRIPTION DRUG MONITORING REPORT IN PATIENT YOHANA: No Instructions: Ear Foreign Body, [id number] Forms: ED Department Discharge Additional Instructions: Follow up with your primary care facility if necessary I have read and agree with the documentation that has been completed regarding this visit. By signing this record, I attest that the documentation was completed in my physical presence and is an accurate record of the encounter.
== END 2018-11-01 18:55 | disposition home or self-care (01) ==
LOC: DL.ED 17:51
DX: T16.2XXA Foreign body in left ear, initial encounter (principal); E78.00 Pure hypercholesterolemia, unspecified; E11.9 Type 2 diabetes mellitus without complications; F32.9 Major depressive disorder, single episode, unspecified; Z79.899 Other long term (current) drug therapy
CPT/HCPCS: 69200; 99282; 99283

== ENCOUNTER 2020-02-07 13:35 | Emergency (ER) | payer MEDICARE, OTHER ==
[2020-02-07 16:29] VITALS: BP 92/79; PULSE 90
--- NOTE | 2020-02-07 16:37 | EDM.PDOC ---
Scribed by Shannan Hill 02/07/20 [id number] for Anuradha Benz MD ED HPI GENERAL MEDICAL PROBLEM - General Chief Complaint: ENT Problem Stated Complaint: SORE THROAT/BODY ACHES Time Seen by Provider: 02/07/20 16:30 Source of Information: Reports: Patient, RN, RN Notes Reviewed History Limitations: Reports: No Limitations - History of Present Illness INITIAL COMMENTS - FREE TEXT/NARRATIVE: Patient presents to ED by POV with a history of cancer in remission. One day history of cough with scratchy throat. No fever or chills. HE has fatigue and malaise. No known contacts. Onset: Gradual Duration: Constant Location: Reports: Generalized Quality: Reports: Ache Severity: Moderate Improves with: Reports: None Worsens with: Reports: None Associated Symptoms: Reports: No Other Symptoms - Related Data Allergies Allergy/AdvReac Type Severity Reaction Status Date / Time simvastatin Allergy Hives Verified 02/07/20 16:29 Home Meds: Home Meds Glimepiride [Amaryl] 4 mg PO DAILY 07/15/14 [History] Aspirin 81 mg PO BEDTIME 11/06/16 [History] Escitalopram [Lexapro] 10 mg PO DAILY 11/06/16 [History] Penicillin V Potassium 500 mg PO BID 11/06/16 [History] Cholecalciferol (Vitamin D3) [Vitamin D] 5,000 unit PO DAILY 01/07/17 [History] Calc/D3/Mag/Zn/Sim/[place] [Calcium 600 MG Plus Vit D] 1 tab PO DAILY 10/22/17 [History] Leuprolide Acetate [Lupron Depot] 45 mg SQ [id number] 10/22/17 [History] Vit A/C/E AC/Znox/Cupric Oxide [Eye Vitamin-Minerals Tablet] 1 tab PO DAILY 10/22/17 [History] valACYclovir HCl [Valtrex] 500 mg PO DAILY 10/22/17 [History] Past Medical History HEENT History: Reports: Cataract, Impaired Vision, Other (See Below) Other HEENT History: WEARS CORRECTIVE LENSES. HX OF HERPES SIMPLEX CONJUNCTIVITIS. Hx OF CATARACT SURGERY TO THE LEFT EYE Cardiovascular History: Reports: High Cholesterol Respiratory History: Reports: None, Other (See Below) Other Respiratory History: WEARS CPAP AT NIGHT. CALCIFIED GRANULOMA OF LUNG. HX OF HISTOPLASMOSIS Gastrointestinal History: Reports: None Genitourinary History: Reports: Acute Renal Failure, Prostate Disorder Musculoskeletal History: Reports: Fracture, Other (See Below) Other Musculoskeletal History: COMPRESSION FRACTURE T11-13. RIGHT CLAVICLE FRACTURE Other Neuro History: COMPRESSION FRACTURE T11-13 Psychiatric History: Reports: Depression Endocrine/Metabolic History: Reports: Diabetes, Type II Hematologic History: Reports: Other (See Below) Other Hematologic History: PROTEINURIA; THROMBOCYTOPENIA Immunologic History: Reports: Other (See Below) Other Immunologic History: Last Chemo 06-16-15 Oncologic (Cancer) History: Reports: Non-Hodgkin's Lymphoma, Prostate Dermatologic History: Reports: None - Infectious Disease History Infectious Disease History: Reports: Chicken Pox, Measles, Mumps - Past Surgical History Head Surgeries/Procedures: Reports: None HEENT Surgical History: Reports: None, Cataract Surgery Cardiovascular Surgical History: Reports: None GI Surgical History: Reports: Appendectomy, Colonoscopy, EGD Male Surgical History: Reports: None, Other (See Below) Endocrine Surgical History: Reports: None Neurological Surgical History: Reports: None Musculoskeletal Surgical History: Reports: None Oncologic Surgical History: Reports: Bone Marrow Transplant Other Oncologic Surgeries/Procedures: [facility] Social & Family History - Family History Family Medical History: Noncontributory - Tobacco Use Smoking Status *Q: Never Smoker - Caffeine Use Caffeine Use: Reports: Coffee Caffeine Use Comment: 3 cups - Living Situation & Occupation Living situation: Reports: , with Spouse ED ROS ENT - Review of Systems Review Of Systems: Comprehensive ROS is negative, except as noted in HPI. ED EXAM, ENT - Physical Exam Exam: See Below Exam Limited By: No Limitations General Appearance: Alert, WD/WN, No Apparent Distress Head: Atraumatic, Normocephalic Respiratory/Chest: Wheezing Cardiovascular: Normal Peripheral Pulses, Regular Rate, Rhythm, No Edema, No Gallop, No JVD, No Murmur, No Rub Back: Normal Inspection, Full Range of Motion Extremities: Normal Inspection, Normal Range of Motion, Non-Tender, No Pedal Edema, Normal Capillary Refill Neurological: Alert, Oriented, CN II-XII Intact, Normal Cognition, Normal Gait, Normal Reflexes, No Motor/Sensory Deficits Psychiatric: Normal Affect, Normal Mood Skin: Warm, Dry, Intact, Normal Color, No Rash Course - Vital Signs Last Recorded V/S: Last Vital Signs Temp 99.4 F 02/07/20 16:25 Pulse 90 02/07/20 16:25 Resp 16 02/07/20 16:25 BP 92/79 02/07/20 16:25 Pulse Ox 95 02/07/20 16:25 - Orders/Labs/Meds Orders: Active Orders 24 hr Category Date Time Status CORONAVIRUS COVID-19 PCR PHL Routine Lab 02/07/20 16:32 Ordered Departure - Departure Time of Disposition: 16:36 Disposition: Home, Self-Care 01 Condition: Good Clinical Impression: Upper respiratory infection Qualifiers: URI type: unspecified URI Qualified Code(s): J06.9 - Acute upper respiratory infection, unspecified - Discharge Information *PRESCRIPTION DRUG MONITORING PROGRAM REVIEWED*: Not Applicable *COPY OF PRESCRIPTION DRUG MONITORING REPORT IN PATIENT YOHANA: Not Applicable Instructions: Upper Respiratory Infection, Adult, [id number] Forms: ED Department Discharge Additional Instructions: Follow up with primary care provider if symptoms worsen or fail to improve. Sepsis Event Note (ED) - Evaluation Sepsis Screening Result: No Definite Risk - Focused Exam Vital Signs: Vital Signs Temp Pulse Resp BP Pulse Ox 02/07/20 16:25 99.4 F 90 16 92/79 95 - My Orders Last 24 Hours: My Active Orders 02/07/20 16:32 CORONAVIRUS COVID-19 PCR PHL Routine - Assessment/Plan Last 24 Hours: My Active Orders 02/07/20 16:32 CORONAVIRUS COVID-19 PCR PHL Routine I have read and agree with the documentation that has been completed regarding this visit. By signing this record, I attest that the documentation was completed in my physical presence and is an accurate record of the encounter.
== END 2020-02-07 16:53 | disposition home or self-care (01) ==
LOC: DL.ED 13:35
DX: J06.9 Acute upper respiratory infection, unspecified (principal); E11.9 Type 2 diabetes mellitus without complications; F32.9 Major depressive disorder, single episode, unspecified; Z79.82 Long term (current) use of aspirin; Z79.84 Long term (current) use of oral hypoglycemic drugs; Z79.899 Other long term (current) drug therapy; Z88.8 Allergy status to other drugs, medicaments and biological substances
CPT/HCPCS: 99283; U0002

== ENCOUNTER 2020-10-12 17:37 | Emergency (ER) | payer MEDICARE, OTHER ==
[2020-10-12 17:54] VITALS: BP 138/59; PULSE 86
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
[2020-10-12] MEDS ORDERED: Acetaminophen/HYDROcodone 325-10 MG Tab PO ONE (22:23)
== END 2020-10-12 22:30 | disposition home or self-care (01) ==
LOC: DL.ED 17:37
DX: S22.42XA Multiple fractures of ribs, left side, initial encounter for closed fracture (principal); E11.9 Type 2 diabetes mellitus without complications; Z79.82 Long term (current) use of aspirin; Z79.84 Long term (current) use of oral hypoglycemic drugs; Z79.899 Other long term (current) drug therapy; Y04.0XXA Assault by unarmed brawl or fight, initial encounter; S06.9X9A Unspecified intracranial injury with loss of consciousness of unspecified duration, initial encounter
CPT/HCPCS: 70450; 71101; 99284; A9270

== ENCOUNTER 2024-10-13 18:57 | Emergency (ER) | payer MEDICARE, OTHER ==
[2024-10-13] MEDS ORDERED: Sodium Chloride 0.9% 10 ML Syringe FLUSH PRN (19:10)
[2024-10-13 19:11] VITALS: BP 147/81; PULSE 54
[2024-10-13] MEDS: Ondansetron 4 MG/2 ML SDV IVPUSH ONE (19:29)
[2024-10-13 19:31] LABS: BASOPHILS PERCENT AUTO 0.7 % (0.0-1.0); EOSINOPHILS PERCENT AUTO 0.5 % (1.0-3.0); HEMATOCRIT 50.1 % (40.0-54.0); HEMOGLOBIN 16.9 g/dL (14.0-18.0); LYMPHOCYTES PERCENT AUTO 21.4 % (20.5-50.1); MEAN CORPUSCULAR HEMOGLOBIN 30.6 pg (27.0-34.0); MEAN CORPUSCULAR HGB CONC 33.7 g/dL (33.0-35.0); MEAN CORPUSCULAR VOLUME 90.8 fL (80-100); MONOCYTES PERCENT AUTO 7.3 % (2-8); NEUTROPHILS PERCENT AUTO 70.1 % (42.2-75.2); PLATELET COUNT,PLT 138 10^3/uL (150-450); RED BLOOD CELL COUNT 5.52 10^6/uL (4.6-6.2); WHITE BLOOD CELL COUNT,WBC 11.4 10^3/uL (5.0-10.0)
[2024-10-13 19:47] LABS: PROTHROMBIN TIME 10.4 SEC (9.0-12.0)
[2024-10-13 19:54] LABS: ANION GAP 18.2 mEq/L (7-13); BILIRUBIN TOTAL 0.8 mg/dL (0.2-1.0); BUN/CREATININE RATIO 14.2 (No establ ref range); C-REACTIVE PROTEIN 0.51 ng/dL (<=0.50); CREATININE 2.12 mg/dL (0.70-1.30); EST CRCL DRUG DOSING (CG) 31.03 mL/min; MAGNESIUM 2.2 mg/dL (1.8-2.4); POTASSIUM,K 4.2 mmol/L (3.5-5.1); PROTEIN TOTAL,TP 8.2 g/dL (6.4-8.2)
[2024-10-13] MEDS: Meclizine 12.5 MG Tab PO ONE ×2 (19:59→22:20)
[2024-10-13] MEDS: Lactated Ringers 1,000 ML IV SCH (21:29)
== END 2024-10-13 22:29 | disposition home or self-care (01) ==
LOC: DL.ED 18:57
DX: H81.10 Benign paroxysmal vertigo, unspecified ear (principal); E11.9 Type 2 diabetes mellitus without complications; Z88.8 Allergy status to other drugs, medicaments and biological substances; Z79.899 Other long term (current) drug therapy
CPT/HCPCS: 36415; 70450; 80053; 83735; 84484; 85025; 85610; 86140; 93005; 96361; 96374; 99285; A9270; J2405; J7120